=== PATIENT | male | born 1955 | race Caucasian/White ===

== ENCOUNTER 2018-10-22 01:34 | Inpatient (IN) | payer OTHER, BC ==
[~2018-10-22] VITALS: Ht 177.8 cm; Wt 74.8 kg
[2018-10-22 01:34] VITALS: BP 149/83
[2018-10-22 04:26] LABS: URINE BILIRUBIN NEGATIVE (Negative); URINE BLOOD TRACE (Negative); URINE CLARITY CLEAR; URINE COLOR YELLOW; URINE GLUCOSE-RANDOM* NEGATIVE (Negative); URINE KETONES NEGATIVE (Negative); URINE LEUKOCYTES-REFLEX NEGATIVE (Negative); URINE NITRITE-REFLEX NEGATIVE (Negative); URINE PROTEIN (DIPSTICK) TRACE (Negative); URINE SPECIFIC GRAVITY 1.015 (1.005-1.035); URINE UROBILINOGEN 0.2 E.U./dl (0.2-1.0)
[2018-10-22 04:39] LABS: AMP/METHAMP Negative (Negative); BARBITURATES Negative (Negative); BENZODIAZEPINES Negative (Negative); COCAINE Negative (Negative); METHADONE Negative (Negative); OPIATES Negative (Negative); PCP Negative (Negative)
[2018-10-22 05:21] LABS: ABSOLUTE NEUTROPHILS 17.4 thou/uL (1.4-8.2); BASOPHILS 0.3 % (0.0-2.0); EOSINOPHILS 0.1 % (0.0-3.0); HEMATOCRIT 41.2 % (42.0-52.0); HEMOGLOBIN 13.6 gm/dL (14.0-18.0); LYMPHOCYTES 7.9 % (24.0-44.0); MCH 29.3 pg (26.0-34.0); MCHC 33.1 g/dL (28.0-37.0); MCV 88.3 fL (80.0-100.0); MONOCYTES 2.9 % (1.0-8.0); PLATELET COUNT 301 thou/uL (150-400); POLYS 88.8 % (36.0-66.0); RBC 4.66 mil/uL (4.50-6.00); RDW 15.3 % (10.5-14.5); WBC 19.6 thou/uL (4.0-11.0)
[2018-10-22 05:32] LABS: ANION GAP 17 mmol/L (7-16); BUN 13 mg/dL (7-18); CALCIUM 8.5 mg/dL (8.5-10.1); CHLORIDE 108 mmol/L (98-107); CO2 21 mmol/L (21-32); CREATININE 0.6 mg/dL (0.7-1.3); GLUCOSE 179 mg/dL (74-106); POTASSIUM 4.2 mmol/L (3.5-5.1); SODIUM 146 mmol/L (136-145)
[2018-10-22 05:36] LABS: APTT 26.6 Seconds (24.5-32.8); PROTIME 10.3 Seconds (9.3-11.4)
[2018-10-22 05:41] LABS: ALBUMIN 3.9 g/dL (3.4-5.0); SGOT 34 U/L (15-37); SGPT 39 U/L (30-65); TOTAL BILIRUBIN 0.3 mg/dL (<0.1-1.0); TOTAL PROTEIN 6.9 g/dL (6.4-8.2); TROPONIN-I <0.06 ng/mL (<0.06)
[2018-10-22 06:32] VITALS: BP 138/78
[2018-10-22 06:59] VITALS: BP 138/78
[2018-10-22 07:20] LABS: PHOSPHORUS 3.8 mg/dL (2.5-4.9)
--- NOTE | 2018-10-22 10:34 | EKG ---
[place] [address] [email or web address] [place] [address] ELECTROCARDIOGRAM REPORT Name: ASHLEY RAY Room #: 430-P ADM IN M.R.#: [id number] ������������������ Admission: 10/22/18 ������������������ Attend Phys: Amador Burgos MD Discharge: ������������������ Date of : 53 Report #: [id number] ����������������������������������������������������������������� [id number] THIS REPORT FOR: //name// [facility] ED Test Date: 2018-10-22 Test Time: 04:23:47 Pat Name: ASHLEY RAY Department: Room: 430 Gender: M Water Treatment Technician: MALCOLM : 1955 Requested By: Dane Gonzalez Order Number: [id number] MD: Keo Ventura Measurements Intervals [place] Rate: 106 P: -9 RI: 161 QRS: -28 QRSD: 95 T: 81 QT: 350 QTc: 465 Interpretive Statements Sinus tachycardia Borderline left axis deviation Compared to ECG 03/25/2009 06:41:36 Heart rate has increased Nonspecific ST segment abnormality is no longer present Prolonged QT interval no longer present Electronically Signed On 10-22-2018 10:34:45 CDT by Keo Ventura [email or web address] ��������������������������������������������� <ELECTRONICALLY SIGNED> ���������������������������������������� By: Keo Ventura MD, [facility] ��������������������������������������������� 10/22/18 1034 0423 0423 Keo Ventura MD, [facility] /EPI
--- NOTE | 2018-10-22 12:06 | NUR ---
PT ARRIVED FROM ED TO ROOM 430 AT 0730 C/O RIGHT HIP PAIN R/T RIGHT HIP FX. BEDREST. MARCUM IN PLACE. PAIN MEDS GIVEN ORDERED. PLAN FOR SURGERY TOMORROW. HX LEFT BKA, PROSTHETIC IN PLACE. ACHS, INSULIN GIVEN PER SLIDING SCALE. ROOM AIR. WILL CONTINUE TO MONITOR.
[2018-10-22 13:58] VITALS: BP 159/89
--- NOTE | 2018-10-22 16:57 | NUR ---
PATIENT ADMITTED TO UNIT FROM 4E. HE IS ALERT ORIENTED X4. STATES HIS PAIN HAS NOT BEEN CONTROLLED FOR ALL THE TIMES HE HAS BEEN HERE. HE IS CURRENTLY TAKING DILAUDID 2MG Q2HRS PRN. STATES PAIN TO RIGHT HIP IS EXTREME. EDUCATED ON NEED TO BALANCE PAIN MEDS AND METABOLIC FUNCTION. WILL CONT TO MONITOR AND ASSSIST SA NEEDED.
[2018-10-22 19:15] VITALS: BP 155/92
[2018-10-23] VITALS (9 sets, daily range): BP systolic 149–160; BP diastolic 83–95
[2018-10-23 04:11] LABS: ABSOLUTE NEUTROPHILS 5.2 thou/uL (1.4-8.2); BASOPHILS 0.7 % (0.0-2.0); EOSINOPHILS 0.5 % (0.0-3.0); HEMATOCRIT 33.9 % (42.0-52.0); LYMPHOCYTES 15.1 % (24.0-44.0); MCH 29.8 pg (26.0-34.0); MCHC 33.6 g/dL (28.0-37.0); MCV 88.6 fL (80.0-100.0); MONOCYTES 7.3 % (1.0-8.0); POLYS 76.4 % (36.0-66.0); RBC 3.83 mil/uL (4.50-6.00); RDW 14.8 % (10.5-14.5); WBC 6.8 thou/uL (4.0-11.0)
[2018-10-23 04:12] LABS: CALCIUM 8.5 mg/dL (8.5-10.1); CREATININE 0.6 mg/dL (0.7-1.3); POTASSIUM 4.3 mmol/L (3.5-5.1)
[2018-10-23 04:20] LABS: HEMOGLOBIN 11.4 gm/dL (14.0-18.0); PLATELET COUNT 162 thou/uL (150-400)
--- NOTE | 2018-10-23 04:50 | NUR ---
PT HAS BEEN NPO SINCE 2400 FOR LIKELYHOOD OF HAVING SURGERY. PAIN CONTROL IS THE BIGGEST CORBIN. Q2 HYDROMORPHONE 2MG AND PT STATES IT IS NOT CONTROLLING HIS PAIN. ASKED WHAT HAS HELPED IN THE PAST AND HE SAYS HE WEARS A FENTANYL PATCH. EDUCATED PT ON THE PAIN HE IS EXPERCEICING IS FROM HIS BREAK. REPOSITIONED PT IN BED TO REDUCE STRESS ON RIGHT LEG. Q4 CIWA IS AT 13. BLOOD SUGAR AT 2100 REQUIRED 9 UNITS. FOLLOWING ALL FALL PRECAUTIONS. TELE MONITOR PT IS RUNNING [facility] ROUNDING.
--- NOTE | 2018-10-23 15:06 | NUR ---
INITIAL ASSESSMENT: Consult received for discharge planning. TIFFANY reviewed chart and spoke with nursing and attending physician. Pt was transferred to from . Pt was admitted from [facility] after a fall in his apt. Pt with recent right hip fracture. Pt with hx of ETOH use, DM and left BKA. Surgery scheduled today per ortho. TIFFANY met with pt and friend, Jimbo, at bedside. Introduced role of SW. Pt is alert/orientated x 4. Pt reports he normally uses a walker to ambulate. Pt has left prosthesis. Pt does not currently have services. Pt reports he has been to [facility] and would like to return there if rehab is needed. 5N consulted to evaluate pt as well. Pt to have surgery at 1630 today. Will await therapy evals. Pt's PCP is Dr. Telly Ferguson. SW is following to assist as needed with discharge planning.
[2018-10-23 16:01] LABS: CALCIUM 8.9 mg/dL (8.5-10.1); CREATININE 0.6 mg/dL (0.7-1.3); POTASSIUM 4.1 mmol/L (3.5-5.1)
--- NOTE | 2018-10-23 19:44 | NUR ---
PATIENT WENT TO SURGERY THIS AM. HE WAS CONCERNED THAT NO ONE WILL SIT AND TALK TO HIM AT [facility]. EXPLAINED FACILITY PROCEDURE TO HIM.
[2018-10-24] VITALS (8 sets, daily range): BP systolic 151–167; BP diastolic 71–100
[2018-10-24 01:21] LABS: HEMOGLOBIN 11.1 gm/dL (14.0-18.0); MCH 29.8 pg (26.0-34.0); MCHC 33.8 g/dL (28.0-37.0); MCV 88.3 fL (80.0-100.0); RBC 3.73 mil/uL (4.50-6.00); RDW 14.7 % (10.5-14.5); WBC 8.1 thou/uL (4.0-11.0)
[2018-10-24 01:24] LABS: CALCIUM 8.7 mg/dL (8.5-10.1); CREATININE 0.6 mg/dL (0.7-1.3)
[2018-10-24 06:02] LABS: HEMOGLOBIN 11.9 gm/dL (14.0-18.0); MCH 29.5 pg (26.0-34.0); MCHC 32.9 g/dL (28.0-37.0); MCV 89.7 fL (80.0-100.0); RBC 4.01 mil/uL (4.50-6.00); RDW 14.5 % (10.5-14.5); WBC 8.1 thou/uL (4.0-11.0)
--- NOTE | 2018-10-24 06:29 | NUR ---
PT WAS IN PACU UNTIL 2049, THEN RETURNED TO ROOM 358. VSS. AFEBRILE. RT HIP DRESSING C/D/I WITH CHRISTINE DRESSING IN PLACE. DILAUDID GIVEN FOR PAIN. PAIN WELL CONTROLLED WITH DILAUDID. PT IS ORIENTED X2-3. HE HAS BEEN CONFUSED, PARANOID, AND IRRITABLE ALL NIGHT. PT HAS ASKED MANY QUESTIONS ABOUT HIS ADMISSION STATUS, SURGERY, AND WHY HE IS STILL IN THE HOSPITAL. QUESTIONS ANSWERED, BUT PT IS STILL FRUSTRATED. COOK ROAST SPOKE WITH PATIENT TO HELP ANSWER HIS QUESTIONS. PT CALLED AND FRIEND LATE IN THE NIGHT. REPOSITIONED PT WOULD ALLOW. PT IS ABLE TO HELP REPOSITION SELF IN BED. HIP PRECAUTIONS MAINTAINED. CIWA Q4H. LORAZEPAM GIVEN INDICATED. MARCUM TO DD WITH GOOD URINE OUTPUT. NOT PROGRESSING WELL TOWARD POC GOALS. WILL GIVE REPORT TO ONCOMING NURSE.
--- NOTE | 2018-10-24 10:02 | NUR ---
PT HAS SOME CONFUSION AT TIMES. PATIENT CHANGED TO REGULAR DIET. MARCUM CATH DCD. PT IS COOPERATIVE WITH CARE. WAS GIVEN PAIN MED AND ATIVAN EARLIER. THERAPY TO WORK WITH PATIENT.
--- NOTE | 2018-10-24 11:42 | HC ---
[facility] [place] [address] CONSULTATION Name: ASHLEY RAY Room #: 358-P [facility] IN .R.#: [id number] Admission: 10/22/18 ������������������ Attend Phys: Igor Marvin MD Discharge: ������������������ Date of : 53 Report #: [id number] THIS REPORT FOR: //name// CC: Ashley Burgos DATE OF SERVICE: 10/22/2018 CHIEF COMPLAINT: Right hip pain. HISTORY OF PRESENT ILLNESS: The patient is a pleasant 63-year-old male seen today for evaluation of his right hip and thigh pain. He reports a more recent history of being admitted to [facility] for a right femur fracture and has had an open reduction and internal fixation with a lateral plate construct by Dr. Minaya. He has a complicated past medical history significant for insulin-dependent diabetes, chronic inflammatory demyelinating polyneuropathy. He has had a left foot osteomyelitis that eventually required a below-knee amputation and he ambulates with a prosthesis, currently uses a walker. He is currently residing at [facility]. He fell as he tripped to get up after watching TV and sustained a fall and injury to his right hip. He reports he drank some wine over 24 hours ago and uses CBD oil for his appetite. He is on chronic oral narcotics that he utilizes for breakthrough pain for his CIDP. The patient denies other injuries. He recently has relocated from [place]. CURRENT MEDICATIONS: Please see MAR. ALLERGIES: No known drug allergies. PAST MEDICAL HISTORY: Alcoholism, alcohol intoxication, status post fall, insulin-dependent diabetes mellitus, chronic inflammatory demyelinating polyneuropathy, hypertension, right femur fracture, diabetic wounds. SOCIAL HISTORY: The patient reports he is single, resides at [facility]. He is a smoker, quit approximately a year ago and reports regular alcohol use. PHYSICAL EXAMINATION: GENERAL: The patient is alert, oriented, answering questions appropriately. VITAL SIGNS: Temperature 36.6, pulse 101, respirations 11, BP 138/78, pulse ox 94%. EXTREMITIES: No obvious injuries were noted to the upper extremities. He moved these actively without any difficulty. Pelvis is stable to AP and lateral compression. Right hip, the patient localizes pain about the groin and proximal femur. He has a well-healed incision and wound along the lateral thigh extending to the knee consistent with his prior operative repair of his femur fracture. He has diminished sensation just starting above the level of the knee [address] [address] CONSULTATION Name: ASHLEY RAY Room #: 358-P [facility] IN .R.#: [id number] Admission: 10/22/18 ������������������ Attend Phys: Igor Marvin MD Discharge: ������������������ Date of : 53 Report #: [id number] extending distally to where he has minimal if any sensation to light touch. He is able to move the ankle and toes minimally. No significant swelling is noted. Multiple small scab-type wounds are noted over the leg, nothing appears to have any signs of obvious gross infection or cellulitis. Left leg, the patient has a below-knee amputation with prosthesis in place that he reports is functioning well for him. LABORATORY DATA: Was reviewed. Marijuana screen is positive. Alcohol level was 275 as of this morning at 5:00 a.m. Radiographs reveal a displaced femoral neck fracture above a distal metadiaphyseal type fracture of the femur with a lateral type locking plate applied, peripheral vascular disease is noted. IMPRESSION: 1. Right displaced femoral neck fracture above a metadiaphyseal fracture that has been plated. 2. Multiple medical comorbidities. 3. Acute alcohol intoxication with alcoholism. 4. Chronic pain. 5. Chronic inflammatory demyelinating polyneuropathy. PLAN: We reviewed treatment options. The patient needs to stabilize from medical standpoint and address his current alcohol state. When he has become more medically stable, one could consider operative treatment of the right hip. We have discussed performing a right hip hemiarthroplasty. We have discussed the risk of having a stress riser between the hemiarthroplasty and his hardware more distally that places him at a greater risk with falls in the future of having a periprosthetic type fracture. We discussed amputation could be considered of the right lower extremity. If he had wound issues, periprosthetic fractures or other issues regarding this, this would make ambulation more difficult. The patient strongly prefers to try and preserve the limb and is interested in proceeding with a right hip hemiarthroplasty. Discussed with him that this will likely be performed by one of my partners who will be able to take care of him hopefully tomorrow. Questions were encouraged, all were answered. We again reviewed the complicated nature of his fracture as well as his multiple medical comorbidities. ��������������������������������������������� <ELECTRONICALLY SIGNED> ���������������������������������������� By: Shaun Quiroga MD ��������������������������������������������� 10/24/18 1142 0952 2105 Shaun Quiroga MD /jem
--- NOTE | 2018-10-24 16:42 | NUR ---
SW reviewed chart and spoke with nursing and attending physician. Pt is POD#1 of hip surgery. 5N is following for possible admission to inpt acute rehab. Pt confused earlier today. SW will follow up with pt regarding discharge plan tomorrow.
--- NOTE | 2018-10-24 19:12 | NUR ---
BELL VALET STATED THAT PATIENTS FRIEND ASKED PATIENT WHERE HIS BILLFOLD WAS THE PATIENT STATED WAS IN HIS PANTS POCKET. IT WAS IN BELONGINGS BAG IN CLOSET. HAD CHARGE CARDS AND DEBIT CARDS AND GIFT CARDS ALSO 15.00 IN PAGE. ALL NOTED ON VALUABLES BELONGINGS BAG AND PATIENT SIGNED, SECURITY CALLED TO LOCK UP. PT AT 1900 WAS GETTING MORE CONFUSED NOC NURSE GOING TO GIVE PRN PAIN MED AND ANXIETY MED.
[2018-10-25] VITALS (9 sets, daily range): BP systolic 125–166; BP diastolic 62–94
--- NOTE | 2018-10-25 04:26 | NUR ---
ASSUMED PT CARE AROUND 1900. ORIENTED TO PERSON AND SOMETIMES PLACE. PT IS VERY CONFUSED; HE IS IMPULSIVE AT TIMES, TRYING TO GET OUT OF BED. WHEN ASKED QUESTIONS, PT GIVES VERY CONFUSED, RANDOM RESPONSES. MOVED TO ROOM CLOSER TO NURSES STATION. C/O RT HIP PAIN. GIVEN PRN PAIN MEDICATION WITH SOME RELIEF. LORAZEPAM GIVEN FOR ETOH W/D. PT SLEPT PART OF THE NIGHT. RESP EVEN AND UNLABORED. WHEN AWAKE, HE IS STILL CONFUSED AND IMPULSIVE. HE HAS BEEN INCONTINENT OF URINE MOST OF THE NIGHT. BP WAS ELEVATED, BUT IS IMPROVING. FALL PRECAUTIONS IN PLACE. NOT PROGRESSING WELL TOWARD POC GOALS. WILL CONTINUE TO MONITOR FURTHER.
[2018-10-25 05:45] LABS: HEMATOCRIT 33.5 % (42.0-52.0); HEMOGLOBIN 11.2 gm/dL (14.0-18.0); MCH 29.9 pg (26.0-34.0); MCHC 33.4 g/dL (28.0-37.0); MCV 89.4 fL (80.0-100.0); RBC 3.75 mil/uL (4.50-6.00); RDW 14.6 % (10.5-14.5); WBC 5.8 thou/uL (4.0-11.0)
--- NOTE | 2018-10-25 15:23 | NUR ---
TIFFANY reviewed chart and spoke with nursing and attending physician. Pt was moved to a room closer to the nurses station due to periods of impulsiveness and agitation. TIFFANY met with pt at bedside to discuss discharge plans: post-acute placement. Pt lethargic during time of SW visit. SW explained that [facility] can accept pt and [facility] can evaluate if he still prefers [facility]. Pt states that he prefers [facility]. Pt not willing to sign Patient Vendor Choice Letter at this time. Placed on pt's chart. TIFFANY notified [facility] liaison of new referral. Evaluation to be completed tomorrow. planner intern to fax referral to [facility]. TIFFANY is following to assist as needed with discharge planning.
--- NOTE | 2018-10-25 15:35 | NUR ---
DISCHARGE PLANNING. PATIENT PROGRESSING TOWARDS DISCHARGE GOALS. POST ACUTE RECOMMENDED AT DISCHARGE, ONCE MEDICALLY READY. REFERRAL FAXED TO [facility] FOR POST ACUTE CARE NEEDS. [facility], HOSPITAL LIAISON NOTIFIED. STATED WASTEWATER PROCESS ENGINEER FOR [facility] WILL BE OUT TOMORROW FOR PATIENT BEDSIDE EVAL. UNIT CM/SW AWARE. FOLLOWING TO ASSIST WITH DISCHARGE NEEDS.
--- NOTE | 2018-10-25 17:08 | NUR ---
ASSUMED CARE OF PT AT 0700. PT HAS BEEN DROWSY OR SLEEPING FOR MAJORITY OF DAY. RESPONDS TO VERBAL STIMULI AND COMMANDS. ORIENTATED TO PERSON AND INTERMITTANTLY ORIENTATED TO PLACE AND DAY. SR ON TELE. PT HAS COMPLAINED OF HARRIS AND MILD-MODERATE HIP PAIN. TREATED WITH PRN MEDICATIONS. PT'S CIWA SCORES HAVE RANGED FROM 4-10 TODAY, MOST RECENT BEING A 4. PT HAS BEEN UP TO CHAIR AND WORKED WITH PT. DECREASED APPETITE FOR BREAKFAST AND LUNCH. PT IS PROGRESSING TOWARD POC GOALS. WILL CONTINUE TO MONITOR AND ASSESS.
[2018-10-25] MEDS ORDERED: OXYCODONE HCL 55 MG PO (17:15)
[2018-10-25] MEDS ORDERED: OXYCONTIN20 M1 PO (17:15)
[2018-10-25] MEDS ORDERED: CARAFATE 1 GM TA1 G1 PO (17:16)
[2018-10-25] MEDS ORDERED: FLEXERIL PO (17:16)
[2018-10-25] MEDS ORDERED: HYDROCORTISONE TOP (17:18)
[2018-10-25] MEDS ORDERED: PROTONIX40 M1 PO (17:18)
[2018-10-25] MEDS ORDERED: AMITRIPTYLINE H25 M2 PO (17:19)
[2018-10-25] MEDS ORDERED: TRAZODONE HCL100 MG PO (17:19)
[2018-10-25] MEDS ORDERED: CREON DR 36,001 EACH PO ×2 (17:20→17:21)
[2018-10-25] MEDS ORDERED: CYMBALTA60 MG PO (17:20)
[2018-10-25] MEDS ORDERED: NEURONTIN600 MG PO (17:22)
[2018-10-25] MEDS ORDERED: SERTRALINE HCL50 MG PO (17:23)
[2018-10-25] MEDS ORDERED: VOLTAREN GEL 1100 G2 TOP (17:25)
--- NOTE | 2018-10-25 17:59 | NUR ---
Patient is more lucid this evening. Knows he is in [facility] and today is 10/25. Patient states current pain regimen we have him on is not working and not what he takes at home. Reviewed and updated home medications with patient at bedside. Notified Dr. Marvin of home med update and home medications reordered. Updated patient.
[2018-10-26] VITALS (7 sets, daily range): BP systolic 99–127; BP diastolic 50–64
--- NOTE | 2018-10-26 04:27 | NUR ---
PATIENT IS PROGRESSING SLOWLY IN HIS CARE PLAN. VITAL SIGNS STABLE THROUGHOUT SHIFT WITH PATIENT HAVING NO COMPLAINTS OF NAUSEA. PATIENT DID COMPLAIN OF PAIN FREQUENTLY IN LOWER EXTREMITY FOR WHICH HE WAS TREATED MULTIPLE TIMES WITH MEDICATIONS AND NON PHARMACOLOGICAL INTERVENTIONS. PATIENT WAS MOSTLY ORIENTED THROUGHOUT SHIFT BUT HAS SHOWN SIGNS OF CONFUSION AND AGITATION DURING CERTIFIED HOME HEALTH AIDE HOURS. CIWA PER PROTOCOL WITH PATIENT SCORING LESS THAN 5 FOR MOST OF SHIFT. PATIENT WAS ABLE TO TRANSFER TO CHAIR AND WHEELCHAIR WITH MAX ASSISTANCE AND USE OF PROSTHETIC INCIDENT FREE. OCCASIONAL INCONTINENCE WITH SKIN CARE PROVIDED. PATIENT IS ADAMANT FOR TRANSFER TO DIFFERENT FACILITY TODAY (SEE NOTE). CONTINUE PLAN OF CARE.
--- NOTE | 2018-10-26 04:34 | NUR ---
AROUND 0100 THIS SHIFT PATIENT BECAME IRATE WITH NURSE DUE TO HIS INABILITY TO PROVIDE MEDICATION AT PATIENTS REQUEST AND STARTED DEMANDING TO SPEAK TO DOCTOR AND TELESALES ADVISOR IN REGARDS TO TRANSFER. NURSE INFORMED PATIENT THAT GIVEN THE HOUR IT WAS UNLIKELY THAT HE WOULD BE ABLE TO SPEAK TO THEM AT THE MOMENT BUT THEY WOULD BE AROUND IN THE MORNING TO HELP HIM HANDLE HIS PREFERENCES FAR HIS CARE. NURSE ALSO TRIED TO USE ALL AVAILABLE MEDICATIONS IN ORDER TO HELP PATIENT FEEL MORE COMFORTABLE WHICH HE REFUSED. PATIENT PROCEEDED TO CALL 911 IN ATTEMPT TO SET UP TRANSFER ON HIS OWN WHICH WAS DENIED BY 911 DISPATCH DUE TO HIM NOT BEING DISCHARGED BY THIS HOSPITAL. NURSE PROMPTLY ALERTED MATCHER WHO SPOKE AT LENGTH WITH PATIENT ABOUT THE PROCESS THAT NEEDS TO BE FOLLOWED FOR LATERAL TRANSFER. PATIENT HAS SUBSEQUENTLY CALMED DOWN BUT HAS STILL EXPRESSED A DESIRE TO SPEAK TO DOCTOR IN MORNING FOR TRANSFER. NURSE WILL INFORM ONCOMING STAFF OF PATIENTS REQUEST.
[2018-10-26 05:31] LABS: HEMATOCRIT 31.7 % (42.0-52.0); HEMOGLOBIN 10.5 gm/dL (14.0-18.0); MCH 30.4 pg (26.0-34.0); MCHC 33.1 g/dL (28.0-37.0); MCV 91.8 fL (80.0-100.0); RBC 3.46 mil/uL (4.50-6.00); RDW 14.6 % (10.5-14.5); WBC 7.1 thou/uL (4.0-11.0)
--- NOTE | 2018-10-26 11:00 | O ---
[facility] [address] OPERATIVE REPORT Name: ASHLEY RAY Room #: 351-P [facility] IN M.R.#: [id number] Admission: 10/22/18 ������������������ Attend Phys: Igor Marvin MD Discharge: ������������������ Date of : 53 Report #: [id number] THIS REPORT FOR: //name// CC: Igor Mckinneyti DATE OF SERVICE: 10/23/2018 PREOPERATIVE DIAGNOSIS: Displaced right femoral neck fracture. POSTOPERATIVE DIAGNOSIS: Displaced right femoral neck fracture. PROCEDURE: Cemented right hip hemiarthroplasty. SURGEON: Scott Leon MD. TUBE PUSHER: Riana Oconnor PA-C. INDICATIONS FOR PROCEDURE: Throughout the case, extensive retraction and manipulation of the hip including dislocation and reduction was required. This was afforded to me by my catering administrative assistant. ANESTHESIA: General endotracheal. IMPLANTS: Rizo and Nephew size 11 Conquest cemented stem with a size 50.0 cobalt chrome head. ESTIMATED BLOOD LOSS: 100 mL. COMPLICATIONS: None. SPECIMENS: None. CONDITION UPON LEAVING THE OPERATING ROOM: Stable. INDICATION FOR PROCEDURE: The patient is a 63-year-old gentleman who fell and sustained a right displaced femoral neck fracture. Last June he sustained a right midshaft femur fracture that was treated with ORIF. After discussion with him, he elected for right hip hemiarthroplasty. DESCRIPTION OF PROCEDURE: Risks, benefits, alternatives, complications were discussed in detail with the patient including but not limited to risk of anesthesia, risk of damage to nerves, arteries, blood vessels, risk for infection, bleeding, risk for leg length discrepancy, instability and need for reoperation. Informed consent was obtained from the patient. Right hip was appropriately marked in the preoperative holding area. He was brought to the [facility] [address] [place] [address] OPERATIVE REPORT Name: FLORASHLEY Room #: 351-P [facility] IN M.R.#: [id number] Admission: 10/22/18 ������������������ Attend Phys: Igor Marvin MD Discharge: ������������������ Date of : 53 Report #: [id number] operating room and placed in the supine position on the operating room table. General endotracheal anesthesia was induced without complication. He was then placed in the left lateral decubitus position with the right hip uppermost. Right hip and lower extremity were then prepped and draped in normal sterile fashion. Timeout was performed properly identifying the patient and procedure as well as the instrumentation and implants. All in the operating room were in agreement. Standard posterior approach to the hip was made with 10 blade through the skin. Dissection was taken down to the fascia with Bovie cautery and a Mendoza elevator was used to clean off the fascia. Fresh 10 blade was used to make a fascial incision. This was taken proximally and distally with curved Snell scissor. Charnley retractor was placed. Trochanteric bursa was taken down with Bovie cautery. Piriformis tendon was identified, tagged and taken down with Bovie. Short external rotators were also taken down with Bovie cautery. Capsulotomy was made and capsule ends were tagged for later repair. There is obvious femoral neck fracture. Femoral neck cut was made 1 cm proximal to lesser trochanter to clean up the fracture edges. The femoral head was then removed from the acetabulum and sized, found to be a size 50, size 50 trial head was then placed in the socket and found to have a good fit. Attention was then turned to the femur. This was reamed and broached up to a size 13, at which point, the size 13 broach was stable. This trialed with a standard offset neck and a 50+0 head. Hip was reduced, taken through range of motion, found to be stable, found to have good leg lengths. Hip was dislocated and broach was removed. The final size 11 Conquest stem was then cemented in place using standard cementation techniques. After the cement cured, this was trialed with a 50+0 head. Hip was reduced, taken through range of motion, found to be stable. Hip was dislocated, one last time and a final size 50+0 cobalt chrome unipolar head was placed. Hip was reduced, taken through range of motion, found to be stable. The wound was thoroughly irrigated with normal saline. Periarticular injection consisting of morphine, ropivacaine, epinephrine and Toradol was placed around the hip joint capsule. A gram of vancomycin was placed deep in the joint. The capsule and piriformis were repaired with 0 FiberWire. Fascia was closed with 0 Vicryl, skin was closed with 2-0 Vicryl, 3-0 Monocryl. Dermabond and a CHRISTINE dressing applied. The patient tolerated this procedure well and went to recovery room under care of anesthesia postoperatively. ��������������������������������������������� <ELECTRONICALLY SIGNED> ���������������������������������������� By: Scott Leon MD ��������������������������������������������� 10/26/181099 [id number] Scott Leon MD /nt
[2018-10-26] MEDS ORDERED: PRENATAL COMPL1 EACH PO (13:24)
[2018-10-26] MEDS ORDERED: VITAMIN B-1100 M2 PO (13:24)
[2018-10-26] MEDS ORDERED: LANTUS100 UNIT/M SUBQ (13:31)
[2018-10-26] MEDS ORDERED: ASPIRIN325 PO (13:47)
[2018-10-26 14:18] LABS: FOLIC ACID 18.4 ng/mL (8.6-58.9)
--- NOTE | 2018-10-26 14:32 | NUR ---
ASSUMED CARE OF PT AT 0700. PATIENT HAS BEEN A&O TO PERSON, PLACE, DATE, AND SITUATION. AROUND 0800 PT BEGAN COMPLAINING OF NOT FEELING "RIGHT." PT WAS FEELING "JITTERY" AND HIS BREATHING WAS LABORED. PT WAS ABLE TO EAT BREAKFAST BUT BEGEAN TO EXPERIENCE NAUSEA SHORTLY THEREAFTER. DR. HYLTON ASSESSED PT AND DIRECTED PT BE TREATED WITH PRN ATIVAN. PROVIDED PT MEDICATION AND ON REASSESSMENT PT WAS MUCH MORE RELAXED WITH A MORE REGULAR BREATHING PATTERN. LIASION FROM [place] VISITED WITH PT. PT'S FRIEND WAS AT BEDSIDE AROUND 11AM AND PT WAS AWAKE/ORIENTATED, CONVERSING WITH GUEST. PT HAS BEEN SR ON TELE. BG READINGS HAVE BEEN ELEVATED, CHANGED PT TO MODERATE SLIDING SCALE PER PROTOCOL. PT IS SCHEDULED TO DC TO REHAB THIS AFTERNOON. PT IS PROGRESSING TOWARD DC GOALS. WILL CONTINUE TO MONITOR AND ASSESS.
--- NOTE | 2018-10-26 19:23 | NUR ---
Security called and returned patient's belongings. Belongings gathered. Patient transported to [facility] via wheelchair. IV and telemetry discontinued. Discharged.
[2018-10-27 13:07] LABS: GLYCOHEMOGLOBIN (HGB A1C) 7.5 % (4.8-5.6)
== END 2018-10-26 19:30 | DRG 469 ==
LOC: ER 01:34 → 3W 04:11 → EROBS 04:11 → 4E 07:00 → 3W 15:51
PROVIDERS: Emergency Medicine; Nurse Practitioner; Nurse Practitioner Family; Orthopaedic Surgery; Student in an Organized Health Care Education/Training Program; ADMIT Hospitalist
PROC: 0SRR019 Replacement of Right Hip Joint, Femoral Surface with Metal Synthetic Substitute, Cemented, Open Approach (ICD-10-PCS; principal; 2018-10-23)
DX: S72.001A Fracture of unspecified part of neck of right femur, initial encounter for closed fracture (principal); G92 Toxic encephalopathy; G61.81 Chronic inflammatory demyelinating polyneuritis; G93.40 Encephalopathy, unspecified; F10.239 Alcohol dependence with withdrawal, unspecified; I10 Essential (primary) hypertension; F10.229 Alcohol dependence with intoxication, unspecified; G89.29 Other chronic pain; E10.9 Type 1 diabetes mellitus without complications; Z60.2 Problems related to living alone; F03.90 Unspecified dementia, unspecified severity, without behavioral disturbance, psychotic disturbance, mood disturbance, and anxiety; Z86.73 Personal history of transient ischemic attack (TIA), and cerebral infarction without residual deficits; Z89.512 Acquired absence of left leg below knee; Z79.4 Long term (current) use of insulin; Z87.891 Personal history of nicotine dependence; W18.39XA Other fall on same level, initial encounter; Y93.89 Activity, other specified; Y92.89 Other specified places as the place of occurrence of the external cause; Y99.8 Other external cause status
CPT/HCPCS: 10879; 50010; 50101; 50382; 50414; 51057; 51130; 51225; 51226; 53000; 53078; 54118; 56460; 56524; 56527; 56528; 56530; 57095; 57103; 57165; 62110; 62900; 70005